=== PATIENT | female | born 1945 | race Caucasian/White ===

== ENCOUNTER 2016-12-01 16:41 | Outpatient (CLI) | payer MEDICARE | END 2016-12-01 16:42 | disposition home or self-care (01) | LOC: MADLABBHPM 16:41 | PROVIDERS: ATTEND Family Medicine | DX: N30.00 Acute cystitis without hematuria (principal) | CPT/HCPCS: 87086 ==

== ENCOUNTER 2017-03-04 08:30 | Outpatient (CLI) | payer MEDICARE ==
--- NOTE | 2017-03-04 13:19 | CT ---
ABDOMEN AND PELVIC CT SCAN WITH IV CONTRAST: COMPARISON: 12/17/16, 09/07/16. FINDINGS: Multiple bilateral pulmonary metaphysis are again noted. These are larger in size than on the prior study. In the right lower lobe, metastasis now measures 0.9 cm where it previously measured 0.6 cm and n the left lower lobe 1 metastasis now measures 0.7 cm where it previously measured 0.5 cm. Th ere are multiple low-attenuation masses within the spleen. These are somewhat better defined and mo re well marginated than on the prior study but overall do not show significant change in size. Ther e are some low-attenuation nodular areas involving the right lobe of the liver, particularly the tip of the liver. These measure up to 1.6 cm in size. In retrospect, there was probably one present o n the prior study which measured 0.8 cm and now measures 1.0 cm. A second focus measured 0.9 cm and now measures 1.6 cm. There are other smaller low-attenuation nodular foci within primarily the rig ht lobe, evidence for liver metastasis. The gallbladder, pancreas, and adrenal glands are stable. No renal calculus or acute obstruction. Status post right hemicolectomy with some postoperative changes with some soft tissue nodularity at the level of the anastomosis. This is well demonstrated on today's study because of complete oral contrast filling the distal ileum and the anastomosis wit h 2.3 x 2.6 cm area of soft tissue density which is not outlined with contrast, certainly worrisome for tumor recurrence. On previous studies, the amount of oral contrast in this region was very limi tommie. Overall size of this soft tissue component, however, does not appear to be significantly villatoro ed when compared to the prior study of 12/25/16. Again noted is somewhat confluence of small bowel a nd sigmoid colon in the upper mid pelvis with some associated nodularity, the appearance of which do es not appear significantly changed from the 12/17/16 study. In addition, scattered areas in the ome ntum and mesentery demonstrate some nodular as well as some more interstitial-appearing foci of soft tissue density or fat stranding within the mesentery. This certainly raises concern for the possib ility of omental disease or omental metaphysis. This does not appear to be significantly changed, h owever, when compared to the prior 12/17/16 study. IMPRESSION: Numerous pulmonary metastasis increasing in size from prior study. Evidence for liver metaphysis in the caudal portion of the right lobe of the liver increasing in siz e from prior study. Nodular mass density/densities adjacent to the sigmoid colon, stable. Evidence for soft tissue nodularity at the ileal transverse colon anastomosis which is much better d emonstrated today's studies because this area is completely outlined with oral contrast indicating e vidence for tumor recurrence at this location, overall size of this, however, does not appear signif icantly changed from prior study. Evidence for some interstitial and nodular parenchymal changes within the mesentery and omentum, o verall stable, concerning for omental metastasis. No evidence of ascites. Stable left adrenal nodule. No evidence for other significant acute process. POS: [facility]
== END 2017-03-04 08:31 | disposition home or self-care (01) ==
LOC: MADCT 08:30
PROVIDERS: ATTEND Internal Medicine Hematology & Oncology
DX: C18.0 Malignant neoplasm of cecum (principal); C78.00 Secondary malignant neoplasm of unspecified lung; E27.9 Disorder of adrenal gland, unspecified
CPT/HCPCS: 36415; 74177; 82565

== ENCOUNTER 2017-04-17 04:00 | Emergency (ER) | payer MEDICARE ==
[2017-04-17] MEDS ORDERED: Promethazine HCl 25 MG/ML VIAL ONE (05:08)
[2017-04-17] MEDS ORDERED: Pantoprazole 40 MG VIAL ONE (05:08)
[2017-04-17 05:18] LABS: INR-International Normal Ratio 1.1; Prothrombin Time 13.8 SEC (12.0-14.7)
[2017-04-17 05:28] LABS: ALT (SGPT) 6 U/L (8-55); AST (SGOT) 13 U/L (5-34); Albumin 4.3 g/dL (3.4-4.8); Alkaline Phosphatase 116 U/L (40-150); Anion Gap 20 mmol/L (10-20); BUN (Urea Nitrogen) 38 mg/dL (9.8-20.1); Bilirubin, Total 1.4 mg/dL (0.2-1.2); Calc. Creatinine Clearance 0 mL/min (70-130); Calcium 10.1 mg/dL (7.8-10.44); Carbon Dioxide 21 mmol/L (23-31); Chloride 98 mmol/L (98-107); Estimated GFR-MDRD 32; Glucose 134 mg/dL (83-110); Lipase 10 U/L (8-78); Magnesium 2.3 mg/dL (1.6-2.6); Protein, Total 7.3 g/dL (6.0-8.3); Sodium 135 mmol/L (136-145)
[2017-04-17 05:36] LABS: Eosinophils 4 % (0-10); Lymphocytes 28 % (21-51); MDiff Complete? YES; Mean Corpuscular HGB CONC 34.9 g/dL (32.0-36.0); Mean Corpuscular Hemoglobin 29.9 pg (27.0-31.0); Mean Corpuscular Volume 85.5 fl (81.0-99.0); Mean Platelet Volume 8.7 fL (7.4-10.4); Monocytes 2 % (0-10); Neutrophil 45 % (42-75); PLT Morphology Comment Appears Decreased; Platelet Count 88 thou/uL (130-400); RBC Distribution Width 12.6 % (11.5-14.5); RBC Morphology Normal; Reactive Lymphocytes 21 % (0-10); Red Blood Cell (RBC) Count 4.35 mill/uL (4.20-5.40); White Blood Cell (WBC) Count 1.7 thou/uL (4.8-10.8)
[2017-04-17] MEDS ORDERED: Sodium Chloride 0.9% 1,000 ML BAG ONE (08:37)
[2017-04-17] MEDS ORDERED: Sodium Chloride 0.9% 100 ML BAG ONE (08:38)
--- NOTE | 2017-04-17 09:00 | RAD ---
SINGLE VIEW OF THE CHEST: COMPARISON: 07/10/16. HISTORY: Colon cancer. FINDINGS: A single view of the chest shows a normal size cardiomediastinal silhouette. The MediPort is unchan ged in position. The patient is status post sternotomy. There is no evidence of consolidation. Th ere are small nodules projecting over both lower lobes concerning for cannonball metastases. IMPRESSION: Multifocal nodules are likely secondary to metastatic disease. POS: OFF
== END 2017-04-17 08:10 | disposition home or self-care (01) ==
LOC: MADERS 04:00
DX: R11.2 Nausea with vomiting, unspecified (principal); T45.1X5A Adverse effect of antineoplastic and immunosuppressive drugs, initial encounter; E86.0 Dehydration; D69.6 Thrombocytopenia, unspecified; I10 Essential (primary) hypertension; E78.00 Pure hypercholesterolemia, unspecified; Z87.891 Personal history of nicotine dependence
CPT/HCPCS: 71010; 80053; 82150; 83690; 83735; 83880; 85025; 85610; 85730; 96361; 96365; 96375; C9113; J2550; J7050

== ENCOUNTER 2017-04-25 13:20 | Emergency (ER) | payer MEDICARE ==
[~2017-04-25 13:20] MED LIST: Sodium Chloride 0.9% 1,000 ML BAG ONE
[2017-04-25] MEDS ORDERED: Ondansetron HCl/PF 4 MG/2 ML Vial ONE (14:20)
[2017-04-25 15:14] LABS: ALT (SGPT) Less than 6 U/L (8-55); AST (SGOT) 10 U/L (5-34); Albumin 3.5 g/dL (3.4-4.8); Alkaline Phosphatase 99 U/L (40-150); Anion Gap 15 mmol/L (10-20); BUN (Urea Nitrogen) 16 mg/dL (9.8-20.1); Bilirubin, Total 0.8 mg/dL (0.2-1.2); Calc. Creatinine Clearance 0 mL/min (70-130); Carbon Dioxide 23 mmol/L (23-31); Chloride 103 mmol/L (98-107); Estimated GFR-MDRD 68; Globulin 2.1 g/dL (2.4-3.5); Glucose 86 mg/dL (83-110); Protein, Total 5.6 g/dL (6.0-8.3); Sodium 138 mmol/L (136-145)
[2017-04-25 15:16] LABS: Eosinophils 1 % (0-10); Hemoglobin 11.2 g/dL (12.0-16.0); Lymphocytes 19 % (21-51); MDiff Complete? YES; Mean Corpuscular HGB CONC 34.8 g/dL (32.0-36.0); Mean Corpuscular Hemoglobin 29.8 pg (27.0-31.0); Mean Corpuscular Volume 85.6 fl (81.0-99.0); Mean Platelet Volume 6.8 fL (7.4-10.4); Metamyelocyte 1 % (0-0); Monocytes 24 % (0-10); Neutrophil 52 % (42-75); PLT Morphology Comment Appears Adequate; Platelet Count 168 thou/uL (130-400); Polychromasia SLIGHT = 2-3 cells (100X) (0-2/hpf); RBC Distribution Width 13.9 % (11.5-14.5); Reactive Lymphocytes 3 % (0-10); Red Blood Cell (RBC) Count 3.77 mill/uL (4.20-5.40); White Blood Cell (WBC) Count 5.6 thou/uL (4.8-10.8)
[2017-04-25 15:34] LABS: Potassium 2.9 mmol/L (3.5-5.1)
[2017-04-25] MEDS ORDERED: NS 0.9% w/ 40 MEQ KCL 1,000 ML IV ONE (15:52)
== END 2017-04-25 18:43 | disposition home or self-care (01) ==
LOC: MADERS 13:20
DX: E86.0 Dehydration (principal); E87.6 Hypokalemia; I10 Essential (primary) hypertension; C78.7 Secondary malignant neoplasm of liver and intrahepatic bile duct; I25.10 Atherosclerotic heart disease of native coronary artery without angina pectoris; C78.00 Secondary malignant neoplasm of unspecified lung; Z85.038 Personal history of other malignant neoplasm of large intestine; Z92.21 Personal history of antineoplastic chemotherapy; E78.00 Pure hypercholesterolemia, unspecified; Z87.891 Personal history of nicotine dependence
CPT/HCPCS: 80053; 83880; 85025; 96361; 96365; 96366; 96375; 96376; J1642; J2270; J2405; J7050

== ENCOUNTER 2017-05-05 05:17 | Emergency (ER) | payer MEDICARE ==
[2017-05-05] MEDS ORDERED: Ondansetron HCl/PF 4 MG/2 ML Vial ONE (06:35)
[2017-05-05] MEDS ORDERED: Morphine Sulfate 2 MG/ML SYRINGE ONE (06:35)
[2017-05-05 06:45] LABS: INR-International Normal Ratio 1.1; Prothrombin Time 14.6 SEC (12.0-14.7)
[2017-05-05 06:46] LABS: PTT 33.7 SEC (22.9-36.1)
[2017-05-05 06:54] LABS: Hemoglobin 10.2 g/dL (12.0-16.0); Mean Corpuscular HGB CONC 33.2 g/dL (32.0-36.0); Mean Corpuscular Hemoglobin 28.6 pg (27.0-31.0); Mean Platelet Volume 10.1 fL (7.4-10.4); Platelet Count 38 thou/uL (130-400); RBC Distribution Width 13.8 % (11.5-14.5); Red Blood Cell (RBC) Count 3.56 mill/uL (4.20-5.40); White Blood Cell (WBC) Count 0.4 thou/uL (4.8-10.8)
[2017-05-05 07:10] LABS: PLT Morphology Comment Appears Decreased
[2017-05-05 07:14] LABS: ALT (SGPT) 7 U/L (8-55); AST (SGOT) 10 U/L (5-34); Albumin 3.4 g/dL (3.4-4.8); Alkaline Phosphatase 99 U/L (40-150); Anion Gap 16 mmol/L (10-20); BUN (Urea Nitrogen) 16 mg/dL (9.8-20.1); Calc. Creatinine Clearance 0 mL/min (70-130); Carbon Dioxide 23 mmol/L (23-31); Chloride 100 mmol/L (98-107); Estimated GFR-MDRD 68; Globulin 2.3 g/dL (2.4-3.5); Glucose 108 mg/dL (83-110); Potassium 3.1 mmol/L (3.5-5.1); Protein, Total 5.7 g/dL (6.0-8.3); Sodium 136 mmol/L (136-145)
[2017-05-05 07:44] LABS: Anisocytosis SLIGHT = 6-15 cells (100X) (0-5/hpf)
[2017-05-05] MEDS ORDERED: D5 NS W ONE (13:06)
[2017-05-05] MEDS ORDERED: KCL ONE (13:06)
== END 2017-05-05 09:10 | disposition home or self-care (01) ==
LOC: MADERS 05:17
DX: E86.0 Dehydration (principal); D72.819 Decreased white blood cell count, unspecified; D69.6 Thrombocytopenia, unspecified; T45.1X5A Adverse effect of antineoplastic and immunosuppressive drugs, initial encounter; C78.02 Secondary malignant neoplasm of left lung; C78.01 Secondary malignant neoplasm of right lung; I10 Essential (primary) hypertension; E78.00 Pure hypercholesterolemia, unspecified; I25.10 Atherosclerotic heart disease of native coronary artery without angina pectoris; Z87.891 Personal history of nicotine dependence; Z79.82 Long term (current) use of aspirin; Z79.899 Other long term (current) drug therapy
CPT/HCPCS: 36415; 80053; 85025; 85610; 85730; 96361; 96365; 96375; J2270; J2405

== ENCOUNTER 2017-07-20 00:11 | Emergency (ER) | payer MEDICARE ==
[2017-07-20] MEDS ORDERED: Nitroglycerin 0.4 MG TAB 1 EACH ONE (00:32)
[2017-07-20] MEDS ORDERED: Morphine 10 MG/ML VIAL ONE (00:35)
[2017-07-20] MEDS ORDERED: Aspirin 325 MG TAB ONE (00:44)
[2017-07-20] MEDS ORDERED: Ondansetron HCl/PF 4 MG/2 ML Vial ONE (00:44)
[2017-07-20 00:45] LABS: #Basophils 0.1 thou/uL (0.0-0.2); #Lymphocytes 2.1 thou/uL (1.20-3.40); #Monocytes 0.6 thou/uL (0.11-0.59); #Neutrophils 1.8 thou/uL (1.40-6.50); %Basophils 1.6 % (0.0-1.0); %Eosinophils 1.1 % (0.0-10.0); %Lymphocytes 45.7 % (21.0-51.0); %Monocytes 13.2 % (0.0-10.0); %Neutrophils 38.5 % (42.0-75.0); Hemoglobin 10.9 g/dL (12.0-16.0); Mean Corpuscular HGB CONC 34.5 g/dL (32.0-36.0); Mean Corpuscular Hemoglobin 32.6 pg (27.0-31.0); Mean Corpuscular Volume 94.5 fl (81.0-99.0); Mean Platelet Volume 5.8 fL (7.4-10.4); Platelet Count 158 thou/uL (130-400); Red Blood Cell (RBC) Count 3.34 mill/uL (4.20-5.40); White Blood Cell (WBC) Count 4.6 thou/uL (4.8-10.8)
[2017-07-20 00:58] LABS: ALT (SGPT) 11 U/L (8-55); AST (SGOT) 20 U/L (5-34); Albumin 3.5 g/dL (3.4-4.8); Alkaline Phosphatase 107 U/L (40-150); Anion Gap 18 mmol/L (10-20); BUN (Urea Nitrogen) 12 mg/dL (9.8-20.1); Bilirubin, Total 0.7 mg/dL (0.2-1.2); CK (CPK) 42 U/L (29-168); Calc. Creatinine Clearance 0 mL/min (70-130); Calcium 9.4 mg/dL (7.8-10.44); Carbon Dioxide 25 mmol/L (23-31); Chloride 102 mmol/L (98-107); Estimated GFR-MDRD 63; Globulin 2.6 g/dL (2.4-3.5); Glucose 120 mg/dL (83-110); Potassium 3.5 mmol/L (3.5-5.1); Protein, Total 6.1 g/dL (6.0-8.3); Sodium 141 mmol/L (136-145)
[2017-07-20 01:00] LABS: Troponin I Less than 0.010 ng/mL (< 0.028)
[2017-07-20 01:07] LABS: PTT 31.3 SEC (22.9-36.1); Prothrombin Time 13.1 SEC (12.0-14.7)
[2017-07-20] MEDS ORDERED: Mag-Al Plus 1200 MG/1200 MG/120 MG/30 ML UDCUP ONE (01:31)
[2017-07-20] MEDS ORDERED: Lidocaine Viscous Sol 2% 15 ml UD Cup ONE (01:31)
[2017-07-20] MEDS ORDERED: Donnatal Elixir 16.2 MG/5 ML UDCUP ONE ×2 (01:31→14:16)
--- NOTE | 2017-07-20 08:09 | RAD ---
UPRIGHT PORTABLE CHEST 1 VIEW: HISTORY: A 71-year-old female with chest pain. COMPARISON: 05/11/17. FINDINGS: Postop midline sternotomy. Right central line and injection port. Some increased linear, interstit ial, and some prominent reticulonodular and alveolar nodular parenchymal changes in both lungs. No confluent pneumonia or overt edema or pleural effusion. IMPRESSION: Increased linear and interstitial markings as well as bilateral alveolar nodular parenchymal changes bilaterally with distinct nodules in both lungs certainly concerning for the possibility of metasta tic disease. Overall stable appearance from 05/11/17. POS: [facility]
== END 2017-07-20 03:10 | disposition short-term general hospital (02) ==
LOC: MADERS 00:11
DX: I20.0 Unstable angina (principal); C18.9 Malignant neoplasm of colon, unspecified; C79.9 Secondary malignant neoplasm of unspecified site; I10 Essential (primary) hypertension; Z87.891 Personal history of nicotine dependence
CPT/HCPCS: 36415; 71010; 80053; 82553; 83735; 83880; 84484; 85025; 85610; 85730; 93005; 94760; 96374; 96375; J2270; J2405

== ENCOUNTER 2017-09-10 09:04 | Emergency (ER) | payer MEDICARE ==
[2017-09-10] MEDS ORDERED: Diphenoxylate HCl/Atropine Tablet ONE (09:53)
[2017-09-10] MEDS ORDERED: Ketorolac Tromethamine 30 MG/ML VIAL ONE (09:53)
[2017-09-10 10:01] LABS: Hemoglobin 11.4 g/dL (12.0-16.0); Mean Corpuscular HGB CONC 32.1 g/dL (32.0-36.0); Mean Corpuscular Hemoglobin 30.8 pg (27.0-31.0); Mean Platelet Volume 8.2 fL (7.4-10.4); Platelet Count 77 thou/uL (130-400); RBC Distribution Width 14.3 % (11.5-14.5); Red Blood Cell (RBC) Count 3.69 mill/uL (4.20-5.40); White Blood Cell (WBC) Count 2.8 thou/uL (4.8-10.8)
--- NOTE | 2017-09-10 10:04 | RAD ---
PORTABLE UPRIGHT FRONTAL CHEST RADIOGRAPH: DATE: 09/10/17. COMPARISON: 07/20/17. HISTORY: Dehydration and diarrhea. FINDINGS: There are pulmonary nodules noted throughout the left lung and in the mid right lung zone, which appe ar grossly unchanged when compared to 07/20/[address] injected right-sided Port-A-Cath. Mi dline sternotomy wires are noted. There is no pneumothorax or pleural fluid and no focal consolidati on or alveolar edema. IMPRESSION: Stable appearance of the chest. Pulmonary nodules are noted bilaterally, stable. POS: [facility]
[2017-09-10 10:09] LABS: Anisocytosis SLIGHT = 6-15 cells (100X) (0-5/hpf); Band 3 % (5-11); Lymphocytes 32 % (21-51); MDiff Complete? YES; Manual Diff?? YES; Monocytes 20 % (0-10); Neutrophil 45 % (42-75); PLT Morphology Comment Appears Decreased
[2017-09-10 10:16] LABS: ALT (SGPT) 10 U/L (8-55); AST (SGOT) 20 U/L (5-34); Albumin 3.8 g/dL (3.4-4.8); Alkaline Phosphatase 169 U/L (40-150); Anion Gap 17 mmol/L (10-20); BUN (Urea Nitrogen) 9 mg/dL (9.8-20.1); Bilirubin, Total 1.5 mg/dL (0.2-1.2); Calc. Creatinine Clearance 0 mL/min (70-130); Calcium 9.8 mg/dL (7.8-10.44); Carbon Dioxide 24 mmol/L (23-31); Chloride 103 mmol/L (98-107); Estimated GFR-MDRD 67; Globulin 2.3 g/dL (2.4-3.5); Glucose 103 mg/dL (83-110); Lipase 5 U/L (8-78); Potassium 3.3 mmol/L (3.5-5.1); Protein, Total 6.1 g/dL (6.0-8.3)
[2017-09-10 10:25] LABS: Sodium 141 mmol/L (136-145)
[2017-09-10 13:31] LABS: Bilirubin Small (Negative); Blood, Urine Negative (Negative); Clarity Clear (Clear); Glucose, Urine (Dipstick) Negative (Negative); Leukocyte Negative (Negative); Nitrite Negative (Negative); Protein, Urine (Dipstick) Trace mg/dL (Neg-Trace); Urobilinogen 0.2 mg/dL (0.2-1.0)
[2017-09-10 13:35] LABS: RBC/HPF 0-3 HPF (0-3)
[2017-09-10 13:36] LABS: Bacteria/HPF Rare-Few HPF (None Seen); Squamous Epithelial 0-3 HPF (0-3); WBC/HPF 0-3 HPF (0-3)
== END 2017-09-10 14:04 | disposition home or self-care (01) ==
LOC: MADERS 09:04
DX: E86.0 Dehydration (principal); R19.7 Diarrhea, unspecified; I25.10 Atherosclerotic heart disease of native coronary artery without angina pectoris; I10 Essential (primary) hypertension; C78.02 Secondary malignant neoplasm of left lung; C78.01 Secondary malignant neoplasm of right lung; C78.7 Secondary malignant neoplasm of liver and intrahepatic bile duct; C78.89 Secondary malignant neoplasm of other digestive organs; Z87.891 Personal history of nicotine dependence; Z79.82 Long term (current) use of aspirin; Z79.899 Other long term (current) drug therapy; Z85.038 Personal history of other malignant neoplasm of large intestine
CPT/HCPCS: 71045; 80053; 81001; 82150; 83690; 83880; 85025; 87086; 96361; 96374; J1885; J7050

== ENCOUNTER 2017-10-14 21:08 | Inpatient (IN) | payer MEDICARE ==
[2017-10-15] MEDS ORDERED: Mag-Al Plus 1200 MG/1200 MG/120 MG/30 ML UDCUP PO PRN (00:29)
[2017-10-15] MEDS ORDERED: Albuterol Sulfate 1.25 MG/3 ML NEB NEB PRN (00:29)
[2017-10-15] MEDS ORDERED: Nitroglycerin 0.4 MG TAB (25 Tab Bottle) SL PRN (00:32)
[2017-10-15] MEDS ORDERED: Guaifenesin DM 100-10/5 ML UDCUP PO PRN (00:35)
[2017-10-15] MEDS: Cefepime 1 GM VIAL SLOW IVP SCH ×2 (05:33→17:37)
[2017-10-15] MEDS: Clopidogrel Bisulfate 75 MG TAB PO SCH (08:18)
[2017-10-15] MEDS: Carvedilol 12.5 MG TAB PO SCH ×2 (08:18→21:29)
[2017-10-15] MEDS: Gabapentin 300 MG CAP PO SCH ×3 (08:18→21:30)
[2017-10-15] MEDS: Enoxaparin Sodium 40 MG/0.4 ML SYRINGE SC SCH (08:18)
[2017-10-15] MEDS: Aspirin 81 mg Enteric Coated Tablet PO SCH (08:18)
[2017-10-15] MEDS: Docusate 100 MG CAP PO SCH ×2 (08:18→21:29)
[2017-10-15] MEDS: HYDROcodone/Acetaminophen 10/325 mg Tablet PO PRN ×3 (09:39→23:50)
--- NOTE | 2017-10-15 13:35 | HP ---
ATTENDING/PRIMARY CARE PHYSICIAN: Dr. Sonia Fleming SPECIALISTS: Oncologist, Dr. Benito Glover and was seen by Dr. Flores during this hospitalization. REASON FOR ADMISSION: Skilled rehab in [facility]. HISTORY OF PRESENT ILLNESS: Ms. Waggoner is a very pleasant 71-year-old female with significant history of metastatic colon cancer complicated with pancytopenia secondary to chemotherapy, hypertension, dyslipidemia, and CAD. The patient was recently admitted to [facility] with complaints of fever and lethargy. She has had recent chemotherapy prior to ER visit and her white count was 1.4 on presentation. She was admitted for a presumptive diagnosis of neutropenic fever at that time. Her chest x-ray did not show any acute infiltrate, but showed metastatic disease. Her influenza A and B were negative at that time. Her urine culture came back positive for Klebsiella pneumonia which was pansensitive except for nitrofurantoin. She was treated with cefepime in the hospital which will be continued on discharge for 5 more days. Her white count was followed and was started on Filgrastim which improved her count. Her WBC on discharge was reported at 11. She was afebrile and hemodynamically stable upon transfer to the [facility]. She was very weak with severe debility and malnourished so she was deemed to benefit more with skilled rehab prior to going back to the home environment, thus transferred to [facility]. The patient had an unremarkable overnight stay. She remained afebrile. When seen today, she reports that she is still generally weak, could hardly walk when she started her therapy this morning. She reports that she is eating fine and is trying to increase her caloric intake even though she has significant loss of appetite. The patient reports apparent concern of her chemotherapy that was recently canceled due to her "infection." The patient was tearful when this was mentioned because she is worried that her cancer will get worse without chemotherapy, requesting us to coordinate her chemo schedule with her oncologist. Otherwise, no new issues reported at this point. PAST MEDICAL AND SURGICAL HISTORY: Hypertension, dyslipidemia, coronary artery disease with prior coronary artery bypass graft and recent catheterization in , history of metastatic colon cancer. MediPort placement. History of colectomy. Hysterectomy. MEDICATIONS: 1. Aspirin 81 mg p.o. daily. 2. Lipitor 40 mg p.o. at bedtime. 3. Coreg 12.5 mg p.o. b.i.d. 4. Plavix 75 mg p.o. daily. 5. Hydrochlorothiazide 25 mg p.o. daily. 6. Lisinopril 20 mg p.o. daily. 7. Acetaminophen 650 q.4 hours p.r.n. 8. Albuterol 1.25 nebs. q.8h. p.r.n. 9. Aluminum and magnesia 30 mL q.i.d. 10. Cefepime 1 gram IV q.12h. 11. Docusate 100 mg p.o. b.i.d. 12. Lovenox 40 mg subcutaneously daily. 13. Guaifenesin DM 15 mL p.o. q.4h. p.r.n. 14. Hydrocodone/APAP 10/325 mg p.o. q.4h. p.r.n. 15. Maalox 30 mL q.i.d. p.r.n. 16. Nitroglycerin 0.4 mg sublingual every 5 minutes p.r.n. for chest pain, may repeat x3. 17. Ondansetron 4 mg IV q.6 hours p.r.n. 18. Pantoprazole 40 mg p.o. daily. 19. Potassium chloride 40 mEq p.o. q.6h. SOCIAL HISTORY: Denies illicit drug use, alcohol use. No history of smoking. Lives with her . FAMILY HISTORY: Mother of small cell cancer, complicated at the age of 71 , father at age of 74 from massive [place]. CODE STATUS: Full code. The power of assistant attorney general is her nephew. REVIEW OF SYSTEMS: GENERAL: Reports fever, no recurrence, fatigue and general weakness, loss of appetite and weight loss. HEENT: No acute visual changes or hearing changes. RESPIRATORY: No shortness of breath, pain with breathing, sputum production, chronic cough or wheezes. CARDIAC: No chest pain, palpitations, edema, paroxysmal nocturnal dyspnea. Reports dyspnea on exertion. No pain with breathing. GASTROINTESTINAL: Reports intermittent nausea and vomiting, but no recurrence at this time. Reports intermittent generalized abdominal pain, no diarrhea, no constipation, no rectal bleeding. GENITOURINARY: No dysuria, hematuria, frequency, urgency or incontinence. MUSCULOSKELETAL: Reports intermittent arthralgia, stiffness, no joint effusion , no redness. SKIN: No rashes, no lesions, no wounds reported. NEUROLOGIC: No focal paralysis, no paresthesia, no loss of consciousness, no tics, tremors, seizures. PSYCH: Denies hallucinations, suicidal thoughts, homicidal thoughts, ideations or plans. No insomnia. PHYSICAL EXAMINATION: VITAL SIGNS: Blood pressure 145/73, temperature 97.8, pulse 72, respirations 20 , O2 sats 96% at room air, weight 135 pounds and 4 ounces, height 5 feet 4 inches. GENERAL: The patient is awake, alert, oriented x3, not in distress. Generally weak looking, chronically ill-looking, comfortable in exam, interactive. HEENT: Normocephalic, atraumatic. PERRL intact EOM. Nonicteric sclerae. Oral mucosa is moist. No lesions. No mucosal ulcers. NECK: Supple. No LAD, no JVD, no bruit. CHEST: Normal excursion, clear to auscultation bilaterally. HEART: RRR. Normal S1 and S2. ABDOMEN: Flat, soft, normoactive bowel sounds, nondistended, nontender. No rebound, no guarding. Negative CVA tenderness bilaterally. EXTREMITIES: No edema, no cyanosis. Moves all extremities symmetrically. NEUROLOGIC: Nonfocal. DTRs 2+, unsteady gait. PSYCH: Tearful. Otherwise consolable. LABORATORY: Most recent labs: On 10/12/2017 WBC 11, hemoglobin 9.9, hematocrit 30.3, platelets 136. Sodium 137, potassium 3.6, BUN 8, creatinine 0.67, estimated GFR 87, glucose 79, calcium 8.9, lactic acid on 10/09/2017 was 1.2. ASSESSMENT: 1. Deconditioning. 2. Sepsis secondary to Klebsiella urinary tract infection. 3. Neutropenic fever, improved. 4. Recurrent urinary tract infection. 5. Pancytopenia due to chemotherapy. 6. Metastatic colon cancer. 7. Coronary artery disease, status post coronary artery bypass graft. 8. Hypertension. 9. Dyslipidemia. 10. Moderate protein calorie malnutrition. 11. General weakness. CODE STATUS: The patient is full code. PLAN: 1. The patient is admitted to [facility] swing bed for skilled rehab. We will refer to OT, PT. Will continue all current medications as modified per list.Will continue IV antibiotic therapy for 5 days more or as directed. 2. Gastrointestinal prophylaxis with PPI. 3. DVT prophylaxis with Lovenox. 4. Will coordinate oncology care with Dr. Glover to determine the next chemotherapy scheduled for the patient. 5. Further recommendations depending on the hospital course. 6. Estimated length of stay: 3-4 weeks. DISPOSITION: Home with once goal is met. CODE STATUS: Patient reports FULL CODE; . MTDD
[2017-10-15] MEDS ORDERED: Sterile Water 10 ML VIAL FS SCH (16:30)
[2017-10-15] MEDS: Sterile Water 10 ML VIAL FS SCH (17:38)
[2017-10-15] MEDS: traMADol HCl 50 MG TAB PO PRN (21:28)
[2017-10-15] MEDS: Atorvastatin Calcium 10 MG TAB PO SCH (21:30)
[2017-10-16] MEDS: Cefepime 1 GM VIAL SLOW IVP SCH ×2 (05:03→17:45)
[2017-10-16] MEDS: Sterile Water 10 ML VIAL FS SCH ×2 (05:04→17:45)
[2017-10-16] MEDS: traMADol HCl 50 MG TAB PO PRN ×3 (05:46→17:44)
[2017-10-16] MEDS: Aspirin 81 mg Enteric Coated Tablet PO SCH (08:33)
[2017-10-16] MEDS: Enoxaparin Sodium 40 MG/0.4 ML SYRINGE SC SCH (08:33)
[2017-10-16] MEDS: Gabapentin 300 MG CAP PO SCH ×3 (08:33→20:30)
[2017-10-16] MEDS: Carvedilol 12.5 MG TAB PO SCH ×2 (08:33→20:30)
[2017-10-16] MEDS: Clopidogrel Bisulfate 75 MG TAB PO SCH (08:33)
[2017-10-16] MEDS: HYDROcodone/Acetaminophen 10/325 mg Tablet PO PRN ×3 (08:34→20:28)
[2017-10-16] MEDS: Docusate 100 MG CAP PO SCH ×2 (08:44→20:30)
[2017-10-16] MEDS: Atorvastatin Calcium 10 MG TAB PO SCH (20:29)
[2017-10-17] MEDS: traMADol HCl 50 MG TAB PO PRN ×3 (02:01→17:34)
[2017-10-17] MEDS: Ondansetron HCl/PF 4 MG/2 ML Vial IVP PRN (02:59)
[2017-10-17] MEDS: HYDROcodone/Acetaminophen 10/325 mg Tablet PO PRN ×3 (03:13→20:02)
[2017-10-17] MEDS: Cefepime 1 GM VIAL SLOW IVP SCH ×2 (05:17→17:34)
[2017-10-17] MEDS: Sterile Water 10 ML VIAL FS SCH ×2 (05:17→17:34)
[2017-10-17] MEDS: Aspirin 81 mg Enteric Coated Tablet PO SCH (11:01)
[2017-10-17] MEDS: Carvedilol 12.5 MG TAB PO SCH ×2 (11:02→20:04)
[2017-10-17] MEDS: Clopidogrel Bisulfate 75 MG TAB PO SCH (11:03)
[2017-10-17] MEDS: Docusate 100 MG CAP PO SCH ×2 (11:04→20:03)
[2017-10-17] MEDS: Enoxaparin Sodium 40 MG/0.4 ML SYRINGE SC SCH (11:05)
[2017-10-17] MEDS: Gabapentin 300 MG CAP PO SCH ×3 (11:06→20:03)
[2017-10-17] MEDS: Atorvastatin Calcium 10 MG TAB PO SCH (20:03)
[2017-10-18] MEDS: traMADol HCl 50 MG TAB PO PRN ×2 (05:15→19:02)
[2017-10-18] MEDS: Cefepime 1 GM VIAL SLOW IVP SCH ×2 (05:16→17:25)
[2017-10-18] MEDS: Sterile Water 10 ML VIAL FS SCH ×2 (05:16→17:25)
[2017-10-18] MEDS: Docusate 100 MG CAP PO SCH ×2 (09:00→20:52)
[2017-10-18] MEDS: Clopidogrel Bisulfate 75 MG TAB PO SCH (09:00)
[2017-10-18] MEDS: Gabapentin 300 MG CAP PO SCH ×3 (09:00→20:52)
[2017-10-18] MEDS: Aspirin 81 mg Enteric Coated Tablet PO SCH (09:01)
[2017-10-18] MEDS: Enoxaparin Sodium 40 MG/0.4 ML SYRINGE SC SCH (09:01)
[2017-10-18] MEDS: Carvedilol 12.5 MG TAB PO SCH ×2 (09:01→20:52)
[2017-10-18] MEDS: HYDROcodone/Acetaminophen 10/325 mg Tablet PO PRN (17:48)
[2017-10-18] MEDS: Acetaminophen 325 MG TAB PO PRN (20:51)
[2017-10-18] MEDS: Atorvastatin Calcium 10 MG TAB PO SCH (20:51)
[2017-10-19] MEDS: HYDROcodone/Acetaminophen 10/325 mg Tablet PO PRN ×3 (00:45→13:47)
[2017-10-19] MEDS: Ondansetron HCl/PF 4 MG/2 ML Vial IVP PRN (00:55)
[2017-10-19] MEDS: traMADol HCl 50 MG TAB PO PRN ×3 (04:14→17:58)
[2017-10-19] MEDS: Cefepime 1 GM VIAL SLOW IVP SCH ×2 (05:01→17:59)
[2017-10-19] MEDS: Sterile Water 10 ML VIAL FS SCH ×2 (05:01→17:59)
[2017-10-19] MEDS: Carvedilol 12.5 MG TAB PO SCH ×2 (08:34→21:13)
[2017-10-19] MEDS: Clopidogrel Bisulfate 75 MG TAB PO SCH (08:34)
[2017-10-19] MEDS: Gabapentin 300 MG CAP PO SCH ×3 (08:34→21:12)
[2017-10-19] MEDS: Aspirin 81 mg Enteric Coated Tablet PO SCH (08:34)
[2017-10-19] MEDS: Enoxaparin Sodium 40 MG/0.4 ML SYRINGE SC SCH (08:34)
[2017-10-19] MEDS: Docusate 100 MG CAP PO SCH ×2 (08:42→21:12)
[2017-10-19] MEDS: Acetaminophen 325 MG TAB PO PRN (12:01)
[2017-10-19 13:08] LABS: #Basophils 0.1 thou/uL (0.0-0.2); #Eosinphils 0.1 thou/uL (0.0-0.7); #Monocytes 0.8 thou/uL (0.11-0.59); %Eosinophils 0.9 % (0.0-10.0); %Lymphocytes 11.1 % (21.0-51.0); %Neutrophils 77.9 % (42.0-75.0); Hemoglobin 9.7 g/dL (12.0-16.0); Mean Corpuscular HGB CONC 30.8 g/dL (32.0-36.0); Mean Corpuscular Hemoglobin 30.6 pg (27.0-31.0); Mean Corpuscular Volume 99.1 fl (81.0-99.0); Mean Platelet Volume 6.5 fL (7.4-10.4); Platelet Count 178 thou/uL (130-400); RBC Distribution Width 15.9 % (11.5-14.5); Red Blood Cell (RBC) Count 3.18 mill/uL (4.20-5.40)
[2017-10-19] MEDS: Atorvastatin Calcium 10 MG TAB PO SCH (21:13)
[2017-10-20] MEDS: Cefepime 1 GM VIAL SLOW IVP SCH ×2 (05:44→18:11)
[2017-10-20] MEDS: Sterile Water 10 ML VIAL FS SCH ×2 (05:44→18:12)
[2017-10-20] MEDS: Docusate 100 MG CAP PO SCH ×2 (09:48→19:42)
[2017-10-20] MEDS: Gabapentin 300 MG CAP PO SCH ×3 (09:48→19:42)
[2017-10-20] MEDS: Aspirin 81 mg Enteric Coated Tablet PO SCH (09:48)
[2017-10-20] MEDS: Carvedilol 12.5 MG TAB PO SCH ×2 (09:48→19:42)
[2017-10-20] MEDS: Enoxaparin Sodium 40 MG/0.4 ML SYRINGE SC SCH (09:48)
[2017-10-20] MEDS: Clopidogrel Bisulfate 75 MG TAB PO SCH (09:48)
[2017-10-20] MEDS: Atorvastatin Calcium 10 MG TAB PO SCH (19:41)
[2017-10-20] MEDS: HYDROcodone/Acetaminophen 10/325 mg Tablet PO PRN (19:43)
[2017-10-21] MEDS: Aspirin 81 mg Enteric Coated Tablet PO SCH (09:12)
[2017-10-21] MEDS: Gabapentin 300 MG CAP PO SCH ×3 (09:13→20:27)
[2017-10-21] MEDS: Carvedilol 12.5 MG TAB PO SCH ×2 (09:13→20:27)
[2017-10-21] MEDS: Clopidogrel Bisulfate 75 MG TAB PO SCH (09:13)
[2017-10-21] MEDS: Docusate 100 MG CAP PO SCH ×2 (09:13→20:30)
[2017-10-21] MEDS: HYDROcodone/Acetaminophen 10/325 mg Tablet PO PRN (15:36)
[2017-10-21] MEDS: traMADol HCl 50 MG TAB PO PRN (18:10)
[2017-10-21] MEDS: Atorvastatin Calcium 10 MG TAB PO SCH (20:26)
[2017-10-22] MEDS: Clopidogrel Bisulfate 75 MG TAB PO SCH (09:39)
[2017-10-22] MEDS: Docusate 100 MG CAP PO SCH ×2 (09:39→20:47)
[2017-10-22] MEDS: Carvedilol 12.5 MG TAB PO SCH ×2 (09:39→20:47)
[2017-10-22] MEDS: Aspirin 81 mg Enteric Coated Tablet PO SCH (09:39)
[2017-10-22] MEDS: Gabapentin 300 MG CAP PO SCH ×3 (09:39→20:46)
--- NOTE | 2017-10-22 11:40 | RAD ---
PA AND LATERAL VIEWS OF THE CHEST: DATE 10/22/17. COMPARISON: Comparison is made to previous exam on 10/09/17. HISTORY: The patient has a history of shallow breathing with known history of metastatic cancer. FINDINGS: PA and lateral views of the chest demonstrate a right jugular MediPort catheter. Sternotomy wires ar e seen. There are extensive and too numerous to count diffuse pulmonary parenchymal lesions compatible with e xtensive metastatic disease. No evidence of effusions seen. No evidence of obvious pneumonia is see n. IMPRESSION: Numerous pulmonary parenchymal lesions too numerous to count. The pulmonary nodules are better seen on today's exam partly due to the fact that this is a PA radiograph while the previous exam was a por table radiograph. No definite evidence of segmental pneumonia seen. POS: [facility]
[2017-10-22] MEDS: HYDROcodone/Acetaminophen 10/325 mg Tablet PO PRN (20:45)
[2017-10-22] MEDS: Atorvastatin Calcium 10 MG TAB PO SCH (20:47)
[2017-10-23] MEDS: HYDROcodone/Acetaminophen 10/325 mg Tablet PO PRN ×2 (07:41→20:31)
[2017-10-23] MEDS: Gabapentin 300 MG CAP PO SCH ×3 (08:36→20:19)
[2017-10-23] MEDS: Aspirin 81 mg Enteric Coated Tablet PO SCH (08:36)
[2017-10-23] MEDS: Clopidogrel Bisulfate 75 MG TAB PO SCH (08:36)
[2017-10-23] MEDS: Carvedilol 12.5 MG TAB PO SCH ×2 (08:36→20:19)
[2017-10-23] MEDS: Docusate 100 MG CAP PO SCH ×2 (08:36→20:19)
[2017-10-23] MEDS: Atorvastatin Calcium 10 MG TAB PO SCH (20:19)
[2017-10-24] MEDS: HYDROcodone/Acetaminophen 10/325 mg Tablet PO PRN ×3 (05:08→20:44)
[2017-10-24] MEDS: Docusate 100 MG CAP PO SCH ×2 (08:38→20:45)
[2017-10-24] MEDS: Gabapentin 300 MG CAP PO SCH ×3 (08:38→20:44)
[2017-10-24] MEDS: Aspirin 81 mg Enteric Coated Tablet PO SCH (08:39)
[2017-10-24] MEDS: Carvedilol 12.5 MG TAB PO SCH ×2 (08:39→20:45)
[2017-10-24] MEDS: Clopidogrel Bisulfate 75 MG TAB PO SCH (08:39)
[2017-10-24] MEDS: Atorvastatin Calcium 10 MG TAB PO SCH (20:45)
[2017-10-25] MEDS: HYDROcodone/Acetaminophen 10/325 mg Tablet PO PRN ×2 (05:02→14:49)
[2017-10-25] MEDS: Clopidogrel Bisulfate 75 MG TAB PO SCH (08:27)
[2017-10-25] MEDS: Docusate 100 MG CAP PO SCH ×2 (08:27→20:41)
[2017-10-25] MEDS: Gabapentin 300 MG CAP PO SCH ×3 (08:27→20:41)
[2017-10-25] MEDS: Aspirin 81 mg Enteric Coated Tablet PO SCH (08:27)
[2017-10-25] MEDS: Carvedilol 12.5 MG TAB PO SCH ×2 (08:27→20:41)
[2017-10-25] MEDS: Atorvastatin Calcium 10 MG TAB PO SCH (20:41)
[2017-10-26] MEDS: traMADol HCl 50 MG TAB PO PRN (04:21)
[2017-10-26 07:53] LABS: Hemoglobin 9.9 g/dL (12.0-16.0); Lymphocytes 11 % (21-51); MDiff Complete? YES; Mean Corpuscular HGB CONC 31.9 g/dL (32.0-36.0); Mean Corpuscular Hemoglobin 30.9 pg (27.0-31.0); Mean Corpuscular Volume 96.8 fl (81.0-99.0); Mean Platelet Volume 6.1 fL (7.4-10.4); Monocytes 9 % (0-10); Neutrophil 74 % (42-75); PLT Morphology Comment Appears Adequate; Platelet Count 172 thou/uL (130-400); RBC Distribution Width 14.9 % (11.5-14.5); Reactive Lymphocytes 6 % (0-10); White Blood Cell (WBC) Count 8.8 thou/uL (4.8-10.8)
[2017-10-26] MEDS: Clopidogrel Bisulfate 75 MG TAB PO SCH (09:33)
[2017-10-26] MEDS: Aspirin 81 mg Enteric Coated Tablet PO SCH (09:33)
[2017-10-26] MEDS: Gabapentin 300 MG CAP PO SCH ×3 (09:33→20:49)
[2017-10-26] MEDS: Docusate 100 MG CAP PO SCH ×2 (09:33→20:49)
[2017-10-26] MEDS: Carvedilol 12.5 MG TAB PO SCH ×2 (09:33→20:49)
[2017-10-26] MEDS: HYDROcodone/Acetaminophen 10/325 mg Tablet PO PRN ×2 (10:07→20:47)
[2017-10-26] MEDS ORDERED: Benzocaine (Dental) 20% 10 gm Tube TOP PRN (13:08)
[2017-10-26] MEDS: Atorvastatin Calcium 10 MG TAB PO SCH (20:47)
[2017-10-27] MEDS: Aspirin 81 mg Enteric Coated Tablet PO SCH (09:08)
[2017-10-27] MEDS: Clopidogrel Bisulfate 75 MG TAB PO SCH (09:08)
[2017-10-27] MEDS: Docusate 100 MG CAP PO SCH ×2 (09:08→19:44)
[2017-10-27] MEDS: Carvedilol 12.5 MG TAB PO SCH ×2 (09:09→19:45)
[2017-10-27] MEDS: Gabapentin 300 MG CAP PO SCH ×4 (09:09→19:44)
[2017-10-27] MEDS: HYDROcodone/Acetaminophen 10/325 mg Tablet PO PRN (19:44)
[2017-10-27] MEDS: Atorvastatin Calcium 10 MG TAB PO SCH (19:45)
[2017-10-28] MEDS: HYDROcodone/Acetaminophen 10/325 mg Tablet PO PRN ×4 (06:17→22:11)
[2017-10-28] MEDS: Gabapentin 300 MG CAP PO SCH ×3 (08:40→20:09)
[2017-10-28] MEDS: Docusate 100 MG CAP PO SCH ×2 (08:41→20:10)
[2017-10-28] MEDS: Carvedilol 12.5 MG TAB PO SCH ×2 (08:41→20:10)
[2017-10-28] MEDS: Clopidogrel Bisulfate 75 MG TAB PO SCH (08:43)
[2017-10-28] MEDS: Aspirin 81 mg Enteric Coated Tablet PO SCH (08:43)
[2017-10-28] MEDS: traMADol HCl 50 MG TAB PO PRN ×2 (08:46→20:11)
[2017-10-28] MEDS ORDERED: HYDROcodone/Acetaminophen 10/325 mg Tablet PO SCH (09:45)
[2017-10-28] MEDS: Nystatin 500,000 UNITS/5 ML UDCUP SSW SCH ×3 (13:45→20:09)
[2017-10-28] MEDS: Atorvastatin Calcium 10 MG TAB PO SCH (20:09)
[2017-10-28] MEDS: Mirtazapine 15 MG TAB PO SCH (20:10)
[2017-10-29] MEDS: HYDROcodone/Acetaminophen 10/325 mg Tablet PO PRN ×2 (07:26→16:59)
[2017-10-29] MEDS: Gabapentin 300 MG CAP PO SCH ×3 (08:21→20:30)
[2017-10-29] MEDS: Carvedilol 12.5 MG TAB PO SCH ×2 (08:21→20:30)
[2017-10-29] MEDS: Aspirin 81 mg Enteric Coated Tablet PO SCH (08:21)
[2017-10-29] MEDS: Clopidogrel Bisulfate 75 MG TAB PO SCH (08:21)
[2017-10-29] MEDS: Nystatin 500,000 UNITS/5 ML UDCUP SSW SCH ×4 (08:21→20:30)
[2017-10-29] MEDS: Docusate 100 MG CAP PO SCH ×2 (08:21→20:30)
[2017-10-29] MEDS: traMADol HCl 50 MG TAB PO PRN ×2 (10:49→20:29)
[2017-10-29] MEDS: Mirtazapine 15 MG TAB PO SCH (20:30)
[2017-10-29] MEDS: Atorvastatin Calcium 10 MG TAB PO SCH (20:30)
[2017-10-30] MEDS: HYDROcodone/Acetaminophen 10/325 mg Tablet PO PRN ×2 (05:37→19:21)
[2017-10-30] MEDS: Gabapentin 300 MG CAP PO SCH ×3 (08:51→21:10)
[2017-10-30] MEDS: Docusate 100 MG CAP PO SCH ×2 (08:51→21:10)
[2017-10-30] MEDS: Aspirin 81 mg Enteric Coated Tablet PO SCH (08:51)
[2017-10-30] MEDS: Nystatin 500,000 UNITS/5 ML UDCUP SSW SCH ×4 (08:51→21:10)
[2017-10-30] MEDS: Clopidogrel Bisulfate 75 MG TAB PO SCH (08:51)
[2017-10-30] MEDS: Carvedilol 12.5 MG TAB PO SCH ×2 (08:51→21:10)
[2017-10-30] MEDS: Atorvastatin Calcium 10 MG TAB PO SCH (21:10)
[2017-10-30] MEDS: Mirtazapine 15 MG TAB PO SCH (21:11)
[2017-10-30] MEDS: traMADol HCl 50 MG TAB PO PRN (21:28)
[2017-10-31] MEDS: Docusate 100 MG CAP PO SCH ×2 (08:16→20:24)
[2017-10-31] MEDS: HYDROcodone/Acetaminophen 10/325 mg Tablet PO PRN ×2 (08:16→17:31)
[2017-10-31] MEDS: Nystatin 500,000 UNITS/5 ML UDCUP SSW SCH ×4 (08:17→20:23)
[2017-10-31] MEDS: Carvedilol 12.5 MG TAB PO SCH ×2 (08:17→20:24)
[2017-10-31] MEDS: Gabapentin 300 MG CAP PO SCH ×3 (08:17→20:25)
[2017-10-31] MEDS: Aspirin 81 mg Enteric Coated Tablet PO SCH (08:17)
[2017-10-31] MEDS: Clopidogrel Bisulfate 75 MG TAB PO SCH (08:17)
[2017-10-31] MEDS: traMADol HCl 50 MG TAB PO PRN ×2 (11:05→20:51)
[2017-10-31] MEDS: Mirtazapine 15 MG TAB PO SCH (20:23)
[2017-10-31] MEDS: Atorvastatin Calcium 10 MG TAB PO SCH (20:23)
[2017-11-01] MEDS: HYDROcodone/Acetaminophen 10/325 mg Tablet PO PRN ×2 (04:09→15:59)
[2017-11-01] MEDS: Docusate 100 MG CAP PO SCH ×2 (08:33→20:07)
[2017-11-01] MEDS: Aspirin 81 mg Enteric Coated Tablet PO SCH (08:33)
[2017-11-01] MEDS: Gabapentin 300 MG CAP PO SCH ×3 (08:33→20:07)
[2017-11-01] MEDS: Carvedilol 12.5 MG TAB PO SCH ×2 (08:33→20:08)
[2017-11-01] MEDS: Nystatin 500,000 UNITS/5 ML UDCUP SSW SCH ×4 (08:33→20:08)
[2017-11-01] MEDS: Clopidogrel Bisulfate 75 MG TAB PO SCH (08:33)
[2017-11-01] MEDS: Atorvastatin Calcium 10 MG TAB PO SCH (20:07)
[2017-11-01] MEDS: Mirtazapine 15 MG TAB PO SCH (20:07)
[2017-11-01] MEDS: traMADol HCl 50 MG TAB PO PRN (20:37)
[2017-11-02] MEDS: HYDROcodone/Acetaminophen 10/325 mg Tablet PO PRN ×3 (01:52→20:26)
[2017-11-02] MEDS ORDERED: Sodium Chloride 0.9% 10 ML ONE (06:44)
[2017-11-02 06:55] LABS: Mean Corpuscular HGB CONC 32.7 g/dL (32.0-36.0); Mean Corpuscular Hemoglobin 30.7 pg (27.0-31.0); Mean Platelet Volume 6.5 fL (7.4-10.4); Platelet Count 258 thou/uL (130-400); RBC Distribution Width 14.6 % (11.5-14.5); Red Blood Cell (RBC) Count 3.57 mill/uL (4.20-5.40); White Blood Cell (WBC) Count 10.2 thou/uL (4.8-10.8)
[2017-11-02 07:09] LABS: Anisocytosis SLIGHT = 6-15 cells (100X) (0-5/hpf); Band 1 % (5-11); Eosinophils 1 % (0-10); Lymphocytes 8 % (21-51); MDiff Complete? YES; Monocytes 11 % (0-10); Neutrophil 79 % (42-75); PLT Morphology Comment Appears Adequate
[2017-11-02] MEDS: Aspirin 81 mg Enteric Coated Tablet PO SCH (09:13)
[2017-11-02] MEDS: Gabapentin 300 MG CAP PO SCH ×3 (09:13→20:16)
[2017-11-02] MEDS: Carvedilol 12.5 MG TAB PO SCH ×2 (09:13→20:16)
[2017-11-02] MEDS: Nystatin 500,000 UNITS/5 ML UDCUP SSW SCH ×4 (09:14→20:28)
[2017-11-02] MEDS: Clopidogrel Bisulfate 75 MG TAB PO SCH (09:14)
[2017-11-02] MEDS: Docusate 100 MG CAP PO SCH ×2 (09:14→20:18)
[2017-11-02] MEDS: Acetaminophen 325 MG TAB PO PRN (11:33)
[2017-11-02] MEDS: Atorvastatin Calcium 10 MG TAB PO SCH (20:16)
[2017-11-02] MEDS: Mirtazapine 15 MG TAB PO SCH (20:17)
[2017-11-03 00:19] VITALS: BMI 21.8
[2017-11-03] MEDS: HYDROcodone/Acetaminophen 10/325 mg Tablet PO PRN ×3 (01:09→12:05)
[2017-11-03] MEDS: Nystatin 500,000 UNITS/5 ML UDCUP SSW SCH ×4 (08:20→20:19)
[2017-11-03] MEDS: Aspirin 81 mg Enteric Coated Tablet PO SCH (08:21)
[2017-11-03] MEDS: Docusate 100 MG CAP PO SCH ×2 (08:21→20:19)
[2017-11-03] MEDS: Clopidogrel Bisulfate 75 MG TAB PO SCH (08:21)
[2017-11-03] MEDS: Carvedilol 12.5 MG TAB PO SCH ×2 (08:21→20:19)
[2017-11-03] MEDS: Gabapentin 300 MG CAP PO SCH ×3 (08:21→20:20)
[2017-11-03] MEDS: traMADol HCl 50 MG TAB PO PRN (08:25)
[2017-11-03] MEDS ORDERED: HYDROcodone/Acetaminophen 10/325 mg Tablet PO SCH (17:00)
[2017-11-03] MEDS ORDERED: Lidocaine Viscous Sol 2% 15 ml UD Cup SSW SCH (17:00)
[2017-11-03] MEDS: Atorvastatin Calcium 10 MG TAB PO SCH (20:18)
[2017-11-03] MEDS: HYDROcodone/Acetaminophen 10/325 mg Tablet PO SCH (20:21)
[2017-11-04] MEDS: HYDROcodone/Acetaminophen 10/325 mg Tablet PO SCH ×6 (00:49→20:31)
[2017-11-04] MEDS: Clopidogrel Bisulfate 75 MG TAB PO SCH (08:02)
[2017-11-04] MEDS: Aspirin 81 mg Enteric Coated Tablet PO SCH (08:02)
[2017-11-04] MEDS: Gabapentin 300 MG CAP PO SCH ×3 (08:02→20:32)
[2017-11-04] MEDS: Carvedilol 12.5 MG TAB PO SCH ×2 (08:02→20:31)
[2017-11-04] MEDS: Nystatin 500,000 UNITS/5 ML UDCUP SSW SCH ×4 (08:03→20:31)
[2017-11-04] MEDS: Docusate 100 MG CAP PO SCH ×2 (08:03→20:30)
[2017-11-04] MEDS ORDERED: Sodium Chloride 0.9% 10 ML ONE (08:42)
[2017-11-04] MEDS ORDERED: Sodium Chloride 0.9% 1,000 ML IV SCH (09:30)
[2017-11-04] MEDS: Sodium Chloride 0.9% 1,000 ML IV SCH (17:14)
[2017-11-04] MEDS: Atorvastatin Calcium 10 MG TAB PO SCH (20:30)
[2017-11-05] MEDS: HYDROcodone/Acetaminophen 10/325 mg Tablet PO SCH ×4 (01:07→12:35)
[2017-11-05] MEDS: traMADol HCl 50 MG TAB PO PRN (04:06)
[2017-11-05] MEDS: Sodium Chloride 0.9% 1,000 ML IV SCH (07:39)
[2017-11-05] MEDS: Clopidogrel Bisulfate 75 MG TAB PO SCH (08:43)
[2017-11-05] MEDS: Carvedilol 12.5 MG TAB PO SCH ×2 (08:43→21:09)
[2017-11-05] MEDS: Aspirin 81 mg Enteric Coated Tablet PO SCH (08:43)
[2017-11-05] MEDS: Nystatin 500,000 UNITS/5 ML UDCUP SSW SCH ×4 (08:44→21:09)
[2017-11-05] MEDS: Gabapentin 300 MG CAP PO SCH ×3 (08:44→21:08)
[2017-11-05] MEDS: Docusate 100 MG CAP PO SCH ×2 (08:44→21:10)
[2017-11-05] MEDS ORDERED: Morphine ER 15 MG TAB PO SCH (13:30)
[2017-11-05] MEDS: Dextrose 5 %-0.45 % NaCl 1,000 ML IV SCH (13:46)
[2017-11-05] MEDS: HYDROcodone/Acetaminophen 10/325 mg Tablet PO PRN ×2 (17:58→21:12)
[2017-11-05] MEDS: Atorvastatin Calcium 10 MG TAB PO SCH (21:09)
[2017-11-05] MEDS: Morphine ER 15 MG TAB PO SCH (21:10)
[2017-11-06] MEDS: HYDROcodone/Acetaminophen 10/325 mg Tablet PO PRN ×2 (05:36→17:30)
[2017-11-06] MEDS: Carvedilol 12.5 MG TAB PO SCH ×2 (08:52→19:57)
[2017-11-06] MEDS: Aspirin 81 mg Enteric Coated Tablet PO SCH (08:52)
[2017-11-06] MEDS: Docusate 100 MG CAP PO SCH ×2 (08:53→19:58)
[2017-11-06] MEDS: Clopidogrel Bisulfate 75 MG TAB PO SCH (08:53)
[2017-11-06] MEDS: Gabapentin 300 MG CAP PO SCH ×3 (08:53→19:57)
[2017-11-06] MEDS: Morphine ER 15 MG TAB PO SCH ×2 (08:53→19:55)
[2017-11-06] MEDS: Nystatin 500,000 UNITS/5 ML UDCUP SSW SCH ×4 (08:55→19:57)
[2017-11-06] MEDS: Dextrose 5 %-0.45 % NaCl 1,000 ML IV SCH (10:35)
[2017-11-06] MEDS: Atorvastatin Calcium 10 MG TAB PO SCH (19:58)
[2017-11-07] MEDS: Dextrose 5 %-0.45 % NaCl 1,000 ML IV SCH (04:34)
[2017-11-07] MEDS: Carvedilol 12.5 MG TAB PO SCH ×2 (07:49→20:00)
[2017-11-07] MEDS: Morphine ER 15 MG TAB PO SCH ×2 (07:49→20:01)
[2017-11-07] MEDS: Docusate 100 MG CAP PO SCH ×3 (07:49→20:01)
[2017-11-07] MEDS: Nystatin 500,000 UNITS/5 ML UDCUP SSW SCH ×5 (07:50→20:00)
[2017-11-07] MEDS: Clopidogrel Bisulfate 75 MG TAB PO SCH (07:50)
[2017-11-07] MEDS: Gabapentin 300 MG CAP PO SCH ×3 (07:50→20:00)
[2017-11-07] MEDS: Aspirin 81 mg Enteric Coated Tablet PO SCH (07:50)
[2017-11-07] MEDS: HYDROcodone/Acetaminophen 10/325 mg Tablet PO PRN ×2 (08:23→12:13)
[2017-11-07] MEDS: Atorvastatin Calcium 10 MG TAB PO SCH (20:00)
[2017-11-08] MEDS: Dextrose 5 %-0.45 % NaCl 1,000 ML IV SCH ×2 (00:39→22:37)
[2017-11-08] MEDS: HYDROcodone/Acetaminophen 10/325 mg Tablet PO PRN ×2 (05:35→09:44)
[2017-11-08] MEDS: Gabapentin 300 MG CAP PO SCH ×3 (07:43→21:17)
[2017-11-08] MEDS: Clopidogrel Bisulfate 75 MG TAB PO SCH (07:43)
[2017-11-08] MEDS: Morphine ER 15 MG TAB PO SCH ×2 (07:44→21:18)
[2017-11-08] MEDS: Aspirin 81 mg Enteric Coated Tablet PO SCH (07:44)
[2017-11-08] MEDS: Carvedilol 12.5 MG TAB PO SCH ×2 (07:44→21:16)
[2017-11-08] MEDS: Nystatin 500,000 UNITS/5 ML UDCUP SSW SCH ×4 (07:45→22:03)
[2017-11-08 09:41] LABS: Bilirubin Small (Negative); Blood, Urine Trace (Negative); Glucose, Urine (Dipstick) Negative (Negative); Leukocyte Trace (Negative); Nitrite Negative (Negative); Protein, Urine (Dipstick) 30 mg/dL (Neg-Trace); Specific Gravity, Urine 1.015 (1.005-1.030); pH, Urine 5.5 (5.0-9.0)
[2017-11-08 09:42] LABS: Clarity Cloudy (Clear)
[2017-11-08 09:53] LABS: Bacteria/HPF Rare-Few HPF (None Seen); RBC/HPF 0-3 HPF (0-3)
[2017-11-08 09:54] LABS: Crystals/HPF 3+ AMORPH URATES HPF (Negative); Other Casts/LPF 0-3 COARSE GRAN LPF (0-3 Hyaline)
[2017-11-08] MEDS ORDERED: Acetaminophen 650 MG Suppository PR PRN (14:39)
[2017-11-08] MEDS ORDERED: Lantiseptic Ointment 130 GM JAR TOP PRN (14:56)
[2017-11-08] MEDS: Atorvastatin Calcium 10 MG TAB PO SCH (21:15)
[2017-11-08] MEDS: Docusate 100 MG CAP PO SCH (21:16)
[2017-11-08 21:50] VITALS: BP 84/50
[2017-11-08] MEDS: Lantiseptic Ointment 130 GM JAR TOP SCH (22:37)
[2017-11-09] MEDS: Clopidogrel Bisulfate 75 MG TAB PO SCH (09:04)
[2017-11-09] MEDS: Carvedilol 12.5 MG TAB PO SCH (09:04)
[2017-11-09] MEDS: Aspirin 81 mg Enteric Coated Tablet PO SCH (09:04)
[2017-11-09] MEDS: Docusate 100 MG CAP PO SCH (09:05)
[2017-11-09] MEDS: Lantiseptic Ointment 130 GM JAR TOP SCH (09:05)
[2017-11-09] MEDS: Gabapentin 300 MG CAP PO SCH ×2 (09:05→15:27)
[2017-11-09] MEDS: Morphine ER 15 MG TAB PO SCH (09:05)
[2017-11-09] MEDS: Nystatin 500,000 UNITS/5 ML UDCUP SSW SCH ×3 (09:06→17:14)
[2017-11-09 10:03] VITALS: TEMP 101.7
[2017-11-09] MEDS ORDERED: Morphine 4 MG/ML VIAL ONE (10:56)
[2017-11-09] MEDS ORDERED: Morphine 4 MG/ML VIAL IV PRN (11:48)
[2017-11-09] MEDS: Dextrose 5 %-0.45 % NaCl 1,000 ML IV SCH (17:14)
--- NOTE | 2017-11-11 02:10 | DIS ---
DATE OF ADMISSION: 10/14/2017 DATE OF DISCHARGE: 11/09/2017 ATTENDING PHYSICIAN: Sonia Fleming MD ONCOLOGIST: Benito Glover MD REASON FOR ADMISSION: Skilled rehabilitation in [facility] post-hospitalization. DIAGNOSES: 1. Severe debility/physical deconditioning. 2. Metastatic colon cancer. 3. Chronic pain syndrome. 4. Moderate protein-calorie malnutrition. 5. General weakness. SECONDARY DIAGNOSES: 1. Recently treated for sepsis secondary to Klebsiella urinary tract infection. 2. Neutropenic fever, improved. 3. Pancytopenia due to chemotherapy. 4. Coronary artery disease, status post coronary artery bypass graft. 5. Hypertension. 6. Dyslipidemia. 7. History of recurrent urinary tract infection. CODE STATUS: DO NOT RESUSCITATE. MEDICATIONS: 1. Tylenol 650 suppository q.4 hours p.r.n. 2. Dulcolax suppository 10 mg per rectum daily p.r.n. 3. DuoNeb q.4 hours p.r.n. 4. Lantiseptic topical b.i.d. DISPOSITION: Home. CONDITION ON DISCHARGE: Guarded. LONG-TERM PROGNOSIS: Very poor. HISTORY OF PRESENT ILLNESS AND HOSPITAL COURSE: Ms. Waggoner is a very pleasant 72-year-old female with significant history of metastatic colon cancer, complicated with pancytopenia secondary t o chemotherapy; hypertension; dyslipidemia; and CAD. The patient was recently admitted to [facility] with complaints of fever and lethargy. This was noted after recent chemother apy prior to the recent hospitalization. She was diagnosed then with neutropenic fever with a white count of 1.4 on presentation, sepsis deemed to be urosepsis from Klebsiella pneumoniae infection. Th e patient was treated in the hospital for this with IV antibiotic and showed clinical improvement. H er WBC prior to discharge was reported at 11, but at that time, the patient was generally weak and de conditioned that she was transferred to [facility] to benefit from skilled rehabilitation prior to going back to the home environment. The patient had a rough course in rehab due to intermi ttent pain reported from her metastatic cancer. The patient reports pain mostly in the right lower q uadrant that sometimes radiates to the other parts of the abdomen and back. Other complications note d during the rehabilitation course include hypoxia, O2 requiring; intermittent shortness of breath; n ausea without significant vomiting; confusion; and forgetfulness. The patient remains full code over the course of rehabilitation and remains to be hopeful to be able to get back to her baseline functi onal mobility and status in order to get her chemotherapy back again. I had several discussions on d ifferent occasions with her oncologist, Dr. Glover, for this by phone consultation. Dr. Glover rep orted that the patient has significant intolerance to chemotherapy, so chemotherapy has been canceled . The initial plan is to titrate down the dose or change the chemotherapy agents; however, Dr. Deejay zazueta is not comfortable re-trial of chemotherapy until the patient physically and nutritionally stable to receive the treatment. Initially, the patient's rehabilitation course showed some improvement in a very slow manner. There are days that she could walk 10 feet, there are days that she could walk 1 00 feet depending on how she feels. For the most part, the patient's inability to be consistent with rehab is secondary to her chronic pain issues. She was treated initially with [place] alternating wit h tramadol every 6 hours as needed. Pain medication eventually titrated up with an increased dose an d more frequent scheduled dosing secondary to increasing severity of reported pain. Over the last fe w days of her hospital course, the patient has been more generally weak. She had not been able to to lerate an adequate oral consumption, both solids and liquids, secondary to anorexia complicated with oral thrush and mucosal ulcerations. She was treated symptomatically for this that seems to help, bu t during the last few days, the patient was really unable to swallow and becomes clinically dehydrate d. With the hope that she is able to follow up with Dr. Glover that was scheduled on 11/09/[address] [facility], the patient was hydrated with IV fluids. On 11/02/2017, routine CT of the chest, abdom en, and pelvis were performed with intravenous contrast as previously arranged and ordered by Dr. Jen marques. There was significant evidence of progression of disease per CT report. There was no increase in the number of pulmonary nodules, although there is some very subtle increase in the size noted. There was an increase in the size of splenic metastatic lesions, also some subtle increase in the siz e of the masses at the inferior aspect of the right lower lobe of the liver. This was during the kalli e that the patient started having severe and more frequent pain. Another discussion with Dr. Glover by telephone consult was done per the patient's request. Dr. Glover reported at that time to me th at the patient is nontreatable and would like to discuss this with the patient in her next followup a s previously scheduled on 11/09/2017 at 1:15 p.m. At this time, the patient started feeling the prog ression of her cancer herself and has been discussing with me and the staff regarding palliative care with hospice. She remains FULL CODE until the last couple of days prior to discharge when her condi tion markedly declined and become more lethargic and sleeping most of the time. This was also the ti me that we re-visited with the patient's medical power of energy attorney, Jim Morris, regarding the pat ient's poor condition, code status, and palliative care/terminal care in the hospital versus home. O n 11/08/2017, after the patient's medical power of energy attorney came over to visit the patient, DNR was m lucy. On 11/09/2017, the patient's , Link Glover; and the patient's niece, Katie, approached me about discharge plan to go back home with hospice. I discussed this with medical power of attorn ey, Jim, on the phone who lives out of the state and agrees. [facility] believes that the patient's hu sband, Mr. Link Glover, is competent to make decision and he is agreeable to this per request. The patient was referred to hospice of choice and subsequently discharged on 11/10/2017. At the time of discharge, the patient is not clinically doing well. [facility] was notified that is imminent in th e next few days. [facility] is comfortable with comfort care/palliative care with hospice at home, and we will continue pain management per request. Prior to discharge, the patient has been reporting and sc reaming with pain. She was started on IV morphine that eases up the pain. Prior to discharge, comfo rt care was discussed with [facility] and they will continue comfort measures at home. VITAL SIGNS PRIOR TO DISCHARGE: Temperature 101.7, pulse 88, respirations 14, O2 sats 97 at 1.5 O2 p er nasal cannula. CODE STATUS: Changed to DNR per [facility] recommendations. Outpatient DNR was signed by the patient's sp Link woodruff, prior to discharge. Time spent on this discharge was 45 minutes in taking care of the patient and coordinating care.
== END 2017-11-09 19:30 | disposition home or self-care (01) | DRG 947 ==
LOC: MADMS 21:08
PROVIDERS: ADMIT Family Medicine; ATTEND Family Medicine
DX: G89.3 Neoplasm related pain (acute) (chronic) (principal); D61.810 Antineoplastic chemotherapy induced pancytopenia; E44.0 Moderate protein-calorie malnutrition; B37.0 Candidal stomatitis; C78.5 Secondary malignant neoplasm of large intestine and rectum; E86.0 Dehydration; N39.0 Urinary tract infection, site not specified; B96.1 Klebsiella pneumoniae [K. pneumoniae] as the cause of diseases classified elsewhere; R50.81 Fever presenting with conditions classified elsewhere; Z68.21 Body mass index [BMI] 21.0-21.9, adult; I10 Essential (primary) hypertension; E78.5 Hyperlipidemia, unspecified; I25.10 Atherosclerotic heart disease of native coronary artery without angina pectoris; Z95.1 Presence of aortocoronary bypass graft; Z79.82 Long term (current) use of aspirin; Z87.440 Personal history of urinary (tract) infections; Z66 Do not resuscitate
CPT/HCPCS: 36415; 71046; 81001; 85025; A4216; G8978-GP-CK; G8979-GP-CI; J0692; J1650; J2270; J2405

== ENCOUNTER 2017-11-02 06:04 | Outpatient (CLI) | payer MEDICARE ==
--- NOTE | 2017-11-02 12:21 | CT ---
CT CHEST AND ABDOMEN AND PELVIS PERFORMED WITH INTRAVENOUS CONTRAST ENHANCEMENT: HISTORY: Colon cancer. Diffuse abdominal pain. COMPARISON: CT angiogram of the chest, dated 07/20/2017, and a CT of the abdomen and pelvis, dated 03/04/2017. FINDINGS: CHEST: The lungs show enumerable pulmonary nodules. I do not see that there is a significant increa se in the number of nodules. There is some subtle increase in size, which is actually somewhat diffi cult to measure, but some of the nodules have grown by 1 to 2 mm in size. Some of this variation cou ld just be related to differences in measuring technique, but I feel there is a subtle increase in si ze. There is no significant mediastinal, hilar, or axillary adenopathy. No pleural effusions are identif ied. ABDOMEN: There has been a progression of disease. The splenic masses have increased in size. The s plenic lesion along the anterior aspect of the spleen has increased from 2 to 2.5 cm and, in the more inferior aspect of the spleen, from approximately 2.1 to 3 cm. There has also been a subtle increas e in the small masses within the right lobe of the liver. The most significant change is now there i s marked gallbladder distention, and the gallbladder diameter is approximately 4.3 cm, and there is f airly prominent left-sided biliary ductal dilatation that has developed. It is difficult to show surinder t if is a significant degree of portal adenopathy or definite obstructing liver lesion in this region , but this is most likely the etiology of some of these findings. There is suggestion of some wall t hickening in the region of the duodenum. In addition, the patient has undergone an ileocolic anastomotic with what appears to be a right hemic olectomy. There has been soft tissue nodularity in this region. Now, there is a low attenuation are a, measuring approximately 1.5 x 3.5 cm in size, directly adjacent to this, and there is what appears to be infiltration of the rectus abdominis muscle, with soft tissue nodularity. The peritoneal soft tissue changes are directly adjacent to some of these areas and also appear slightly more prominent. The right and left adrenal glands and the right and left kidneys are normal in size. No significant periaortic adenopathy. PELVIS: The soft tissue lesions, which are adjacent to the bladder and colon, have increased in size , as compared to the prior study. The area on the more left side of the pelvis now measures approxim ately 3.9 cm in diameter, as compared to approximately 3.2 cm on the prior study. There is some fat stranding of the perirectal fat. Review of the osseous structures show no lytic or blastic bony change. IMPRESSION: 1. Evidence of progression of disease. 2. There is no increase in the number of the pulmonary nodules, although there is some very subtle i ncrease in size noted. 3. Increase in size of the splenic metastatic lesions. There is also some subtle increase in size o f some of the masses at the inferior aspect of the right lobe of the liver. 4. There has been development of moderate gallbladder distention and associated with this is fairly pronounced left-sided biliary ductal dilatation. It is difficult to show a discrete mass in the port al region that would explain this, but changes are probably on the basis of some adenopathy or mass i n this region. The gallbladder is also of increased attenuation. This could indicate sludge or poss ibly infiltration of the gallbladder. It may be helpful to perform ultrasound to evaluate whether th noe changes of gallbladder distention are related to tumor infiltration or sludge and possibly a deve loping cholecystitis. 5. Adjacent to the ileocolic anastomotic is some low attenuation density and soft tissue nodularity with infiltration into the rectus abdominis muscle on this side. The low attenuation change is most likely on the basis of a necrotic tumor, but it is near the anastomosis, and it could indicate some d eveloping anastomotic breakdown or a localized abscess. 6. The omental soft tissue changes on the midline of the anterior abdomen have increased in size, as have the soft tissue nodules within the pelvis. Findings discussed with Dr. Glover. CODE CR
== END 2017-11-02 06:05 | disposition home or self-care (01) ==
LOC: MADCT 06:04
PROVIDERS: ATTEND Internal Medicine Hematology & Oncology
DX: C18.0 Malignant neoplasm of cecum (principal); M79.89 Other specified soft tissue disorders
CPT/HCPCS: 71260; 74177; 82565